=== PATIENT | female | born 1975 | race Caucasian/White ===

== ENCOUNTER 2016-08-19 21:47 | Emergency (ER) | payer OTHER ==
--- NOTE | 2016-08-19 23:19 | ED CLINICAL REPORT ---
Clinical Report - Physicians/Mid Levels [facility] [address] [place] [address] 08/19/2016 21:49 [id number] Arrived- By private vehicle. Historian- patient. HISTORY OF PRESENT ILLNESS Chief Complaint: FALL. Location of injuries- (right shoulder/ knee). The injury occurred yesterday. Occurred on a street. The patient complains of mild pain. No blow to the head, neck pain or loss of consciousness. (She was walking her laboratory fever dog, when the dog dragged her on the right arm, consequences such, patient fell to the ground in her knees, and has been having knee pain today. Patient with limited pain yesterday. Reports knee swelling and pain to the right shoulder today. Patient denies any previous knee injury. Reports icing once. Patient was seen in urgent care clinic earlier, however,to need to have swelling and thus is here. Patient denies injury to her head or neck.). REVIEW OF SYSTEMS The patient complains of pain on weight bearing. No numbness, dizziness, loss of vision, difficulty breathing or weakness. No headache or laceration. All systems otherwise negative, except as recorded above. PAST HISTORY See nurses notes. Problems: Diarrhea. Asthma. Lung Disease. Vomiting. Headache. Adrenal Disease. Environmental Allergies. Diabetes Insipidus. Thyroid Disease. LNMP - Last Normal Menstrual Period. Additional Surgeries: . Left shoulder . Pituitary tumor removal. Medications: Venlafaxine HCl Oral. Monolukast. Levothyroxine Sodium Oral. Hydrocortisone External. Desmopressin Acetate Oral. Maloxicam. Allergies: Chertussin . Dilaudid. Trovan. SOCIAL HISTORY Never smoker. No alcohol use or drug use. PHYSICAL EXAM Appearance: Alert. Eyes: EOM intact. ENT: No dental injury. CVS: Heart sounds normal. Pulses normal. Respiratory: Breath sounds normal. Chest nontender. No decreased breath sounds. Back: No tenderness. ROM normal. Extremities: Normal inspection. Right shoulder. No tenderness, laceration or puncture wound. No localization or joint effusion. Pelvis stable. Right hip. No tenderness or swelling. Right thigh. No tenderness or laceration. Right knee: mild tenderness and superficial laceration located in the medial joint line. No ecchymosis or foreign body. No limitation in ROM. Right leg. No tenderness or laceration. Neuro: Jyoti Coma Scale: 15- eyes open spontaneously (4); best verbal response- oriented x 3 (5); best motor response- obeys commands (6). Oriented X 3. No motor deficit. LABS, X-RAYS, AND EKG Rt Knee X-ray: (IMPRESSION: 1. Intact right knee. 2. Mild medial compartment osteoarthritic changes. Electronically Final signed by:Ginger Mcdowell MD 08/19/2016 11:35:15 PM). PROGRESS AND PROCEDURES Course of Care: Patient with medial joint line tenderness and mild swelling. Very ambulatory. No distress. Full range of motion of the shoulder, as well as the right knee as well as the right hip. Patient has no signs of lumbar injury. No signs of head injury. Patient to follow up outpatient as needed. 08/19/2016 23:21 BP: 123/79. HR: 93. RR: 18. O2 saturation: 99%. Temp: 97.9 F. Pain level now: 4/10. Patient is stable. Patient/family counseled. Disposition: Discharged. Condition: good. CLINICAL IMPRESSION Sprain of the right shoulder and medial collateral ligament of the right knee. INSTRUCTIONS Apply ice. You may walk and bear weight as tolerated. Do not work for two days. Prescription Medications: Ibuprofen 800 mg tablets: take 1 tablet orally every 8 hours for 5 days, as needed for pain or swelling. Dispense fifteen (15). No refill. Follow-up: Follow up with your doctor in three days as needed. Understanding of the discharge instructions verbalized by patient. (Electronically signed by Laura Morales P.A.-C 08/20/2016 0:13)
--- NOTE | 2016-08-19 23:19 | ED NURSING NOTES ---
Clinical Report - Nurses [facility] [address] [place] [address] 08/19/2016 21:49 Patient: MARKO SWANSON [facility]#: [id number] TRIAGE Triage time 22:Aug 19 2016. Acuity: LEVEL 3. Chief Complaint: FALL. SEPSIS SCREEN: Sepsis Screen: negative. Negative (no infection suspected/documented). JYOTI COMA SCORE: Jyoti Coma Scale: 15- eyes open spontaneously (4); best verbal response- oriented x 4 (5); best motor response- obeys commands (6). --22:17 Joanne Sotomayor 22:09 08/19/16. BP: 136/96. HR: 92. RR: 20. O2 saturation: 100%. Temp: 98.7 F (oral). --22:17 Joanne Sotomayor. Weight: 91.6 kg stated. Height/Length: 65 inches Per Patient. BMI: 33.6. --22:16 Joanne Sotomayor. Medications Maloxicam. --22:13 Joanne Sotomayor Desmopressin Acetate Oral. --22:15 Joanne Sotomayor Hydrocortisone External. --22:15 Joanne Sotomayor Levothyroxine Sodium Oral. --22:15 Joanne Sotomayor Monolukast. --22:16 Joanne Sotomayor Venlafaxine HCl Oral. --22:16 Joanne Sotomayor. Allergies Trovan. --22:14 Joanne Sotomayor Dilaudid. --22:14 Joanne Sotomayor Chertussin . --22:15 Joanne Sotomayor. Medication/allergy information source: the patient. --22:17 Joanne Sotomayor. History Arrived by private vehicle. Historian: patient. Accompanied by family. Primary physician (alex mooney). Location of injuries: right shoulder, right arm, right elbow, right forearm and right knee. This occurred yesterday. Occurred at a park. ( Patient reports she was walking her dog yesterday when the dog pulled her down to the ground. She reports pain in her right shoulder, right arm and right knee. Patient reports she began swelling on the right side of her body. She states she went to urgent care and they told her if she continued to have swelling she should go to ER.). 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 PAST MEDICAL HX: Immunizations: up-to-date. Last normal menstrual period- 6 months ago. SOCIAL HX: Never smoker. No alcohol use or drug use. No infectious disease exposure. ABUSE ASSESSMENT: No report of abuse. FALL RISK ASSESSMENT: Fall risk assessment completed. No fall risk identified. NUTRITIONAL RISK ASSESSMENT: The nutritional risk assessment revealed no deficiencies. FUNCTIONAL ASSESSMENT: Functional assessment: no impairments noted. LEARNING NEEDS ASSESSMENT: The learning needs assessment revealed no barriers. SKIN INTEGRITY ASSESSMENT: Skin integrity risk assessment completed. No skin integrity risk identified. --22:17 Joanne Sotomayor. PROBLEMS: Diarrhea. Asthma. Lung Disease. Vomiting. Headache. Adrenal Disease. Environmental Allergies. Diabetes Insipidus. Thyroid Disease. LNMP - Last Normal Menstrual Period. --22:16 Joanne Sotomayor. ADDITIONAL SURGERIES: . Left shoulder . Pituitary tumor removal. --22:16 Joanne Sotomayor. Interventions ID band on patient. To treatment room. --22:17 Joanne Sotomayor. PHYSICAL ASSESSMENT GENERAL / NEURO / PSYCH: Alert. Oriented X 4. Appears in no acute distress. HEENT: Pupils equal, round and reactive to light. Head non-tender. RESPIRATORY: Respirations not labored. CVS: Normal heart rate and rhythm. GI / : Abdomen soft and nontender. EXTREMITIES: Right shoulder: tenderness. Right elbow: tenderness. Right knee: tenderness. Right leg: tenderness. SKIN: Skin intact. Skin is warm and dry. --22:17 Joanne Sotomayor. NURSING PROGRESS NOTES Cold pack applied. Extremity elevated. Patient gowned. Reassurance given to the patient. Two patient identifiers checked. Call light placed in reach. Side rails up x 1. Bed placed in lowest position. Brakes of bed on. Patient ready for evaluation- chart flagged and ED physician notified. --22:17 Joanne Sootmayor 23:21 08/19/2016 Motrin PO Tablets 800 mg given. Allergies verified and confirmed 5 rights. --23:21 Joanne Sotomayor. DISPOSITION / DISCHARGE Condition at departure: stable. The goals identified in the patient's plan of care were met. FALL RISK ASSESSMENT: Fall risk assessment completed. No fall risk identified. --23:22 Joanne Sotomayor 23:21 08/19/16. BP: 123/79. HR: 93. RR: 18. O2 saturation: 99% on room air. Temp: 97.9 F (oral). Pain level now: 07/23. --23:22 Joanne Sotomayor Departure time: 23:32. --23:32 Edilberto Rogers R.N. Condition at departure: stable. No learning barriers present. Discharge instructions provided and reviewed with the patient. Reviewed medication(s) side effects, precautions, dosing and course information. Prescription(s) given to the patient. Activity restrictions (rest) reviewed. Work note given. Patient verbalized understanding. Written instructions provided in Uzbek. ( Marko verbalizes understanding of all d/c instructions including need to f/u with PCP. Reviewed RICE care for areas of injury. She has no questions and voices no concerns at this time.). The patient was discharged by the physician school bus driver/teacher assistant. She was discharged home and accompanied by spouse. She left the Emergency Department ambulatory and via private vehicle. Spouse driving. JYOTI COMA SCORE: Jyoti Coma Scale: 15- eyes open spontaneously (4); best verbal response- oriented x 4 (5); best motor response- obeys commands (6). --00:45 Edilberto Rogers R.N. Locked/Released at 08/20/2016 0:46 by Edilberto Rogers R.N.
--- NOTE | 2016-08-19 23:19 | ED ORDER SUMMARY ---
..... Patient: MARKO SWANSON OrderSheet [facility] VisitID: [id number] [address] [place] [address] 41y, F Registration Date/Time: 08/19/2016 ORDER SHEET Weight: 91.6 kg (stated) Allergies: Trovan, Dilaudid, Chertussin GENERAL ORDERS: Knee 4V Right Urgent (22:15 08/19/2016 EKoroleva P.A.-C) (Ack 22:16 AMcQuoid ER Tech1) (23:15 RFay) Ice (22:15 08/19/2016 EKoroleva P.A.-C) (Ack 22:16 AMcQuoid ER Tech1) (22:18 HSoule) MEDICATION ORDERS: Motrin PO 800 mg (NOW) (23:13 08/19/2016 EKoroleva P.A.-C) (Ack 23:16 HSoule) (23:21 HSoule) IV FLUIDS: ORDER SHEET NOTES: [Electronically signed by Laura Morales P.A.-C (00:13 08/20/2016)] [Electronically signed by Edilberto Rogers R.N. (00:46 08/20/2016)] [Electronically locked/signed by Edilberto Rogers R.N. (00:46 08/20/2016)]
--- NOTE | 2016-08-19 23:19 | ED ORDER SUMMARY ---
..... Patient: MARKO SWANSON OrderSheet [facility] VisitID: [id number] [address] [place] [address] 41y, F Registration Date/Time: 08/19/2016 ORDER SHEET Weight: 91.6 kg (stated) Allergies: Trovan, Dilaudid, Chertussin GENERAL ORDERS: Knee 4V Right Urgent (22:15 08/19/2016 EKoroleva P.A.-C) (Ack 22:16 AMcQuoid ER Tech1) (23:15 RFay) Ice (22:15 08/19/2016 EKoroleva P.A.-C) (Ack 22:16 AMcQuoid ER Tech1) (22:18 HSoule) MEDICATION ORDERS: Motrin PO 800 mg (NOW) (23:13 08/19/2016 EKoroleva P.A.-C) (Ack 23:16 HSoule) (23:21 HSoule) IV FLUIDS: ORDER SHEET NOTES: [Electronically signed by Laura Morales P.A.-C (00:13 08/20/2016)] [Electronically signed by Edilberto Rogers R.N. (00:46 08/20/2016)] [Electronically locked/signed by Edilberto Rogers R.N. (00:46 08/20/2016)]
--- NOTE | 2016-08-19 23:19 | ED NURSING NOTES ---
Clinical Report - Nurses [facility] [address] [place] [address] 08/19/2016 21:49 Patient: MARKO SWANSON [facility]#: [id number] TRIAGE Triage time 22:Aug 19 2016. Acuity: LEVEL 3. Chief Complaint: FALL. SEPSIS SCREEN: Sepsis Screen: negative. Negative (no infection suspected/documented). JYOTI COMA SCORE: Jyoti Coma Scale: 15- eyes open spontaneously (4); best verbal response- oriented x 4 (5); best motor response- obeys commands (6). --22:17 Joanne Sotomayor 22:09 08/19/16. BP: 136/96. HR: 92. RR: 20. O2 saturation: 100%. Temp: 98.7 F (oral). --22:17 Joanne Sotomayor. Weight: 91.6 kg stated. Height/Length: 65 inches Per Patient. BMI: 33.6. --22:16 Joanne Sotomayor. Medications Maloxicam. --22:13 Joanne Sotomayor Desmopressin Acetate Oral. --22:15 Joanne Sotomayor Hydrocortisone External. --22:15 Joanne Sotomayor Levothyroxine Sodium Oral. --22:15 Joanne Sotomayor Monolukast. --22:16 Joanne Sotomayor Venlafaxine HCl Oral. --22:16 Joanne Sotomayor. Allergies Trovan. --22:14 Joanne Sotomayor Dilaudid. --22:14 Joanne Sotomayor Chertussin . --22:15 Joanne Sotomayor. Medication/allergy information source: the patient. --22:17 Joanne Sotomayor. History Arrived by private vehicle. Historian: patient. Accompanied by family. Primary physician (alex mooney). Location of injuries: right shoulder, right arm, right elbow, right forearm and right knee. This occurred yesterday. Occurred at a park. ( Patient reports she was walking her dog yesterday when the dog pulled her down to the ground. She reports pain in her right shoulder, right arm and right knee. Patient reports she began swelling on the right side of her body. She states she went to urgent care and they told her if she continued to have swelling she should go to ER.). 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 PAST MEDICAL HX: Immunizations: up-to-date. Last normal menstrual period- 6 months ago. SOCIAL HX: Never smoker. No alcohol use or drug use. No infectious disease exposure. ABUSE ASSESSMENT: No report of abuse. FALL RISK ASSESSMENT: Fall risk assessment completed. No fall risk identified. NUTRITIONAL RISK ASSESSMENT: The nutritional risk assessment revealed no deficiencies. FUNCTIONAL ASSESSMENT: Functional assessment: no impairments noted. LEARNING NEEDS ASSESSMENT: The learning needs assessment revealed no barriers. SKIN INTEGRITY ASSESSMENT: Skin integrity risk assessment completed. No skin integrity risk identified. --22:17 Joanne Sotomayor. PROBLEMS: Diarrhea. Asthma. Lung Disease. Vomiting. Headache. Adrenal Disease. Environmental Allergies. Diabetes Insipidus. Thyroid Disease. LNMP - Last Normal Menstrual Period. --22:16 Joanne Sotomayor. ADDITIONAL SURGERIES: . Left shoulder . Pituitary tumor removal. --22:16 Joanne Sotomayor. Interventions ID band on patient. To treatment room. --22:17 Joanne Sotomayor. PHYSICAL ASSESSMENT GENERAL / NEURO / PSYCH: Alert. Oriented X 4. Appears in no acute distress. HEENT: Pupils equal, round and reactive to light. Head non-tender. RESPIRATORY: Respirations not labored. CVS: Normal heart rate and rhythm. GI / : Abdomen soft and nontender. EXTREMITIES: Right shoulder: tenderness. Right elbow: tenderness. Right knee: tenderness. Right leg: tenderness. SKIN: Skin intact. Skin is warm and dry. --22:17 Joanne Sotomayor. NURSING PROGRESS NOTES Cold pack applied. Extremity elevated. Patient gowned. Reassurance given to the patient. Two patient identifiers checked. Call light placed in reach. Side rails up x 1. Bed placed in lowest position. Brakes of bed on. Patient ready for evaluation- chart flagged and ED physician notified. --22:17 Joanne Sotomayor 23:21 08/19/2016 Motrin PO Tablets 800 mg given. Allergies verified and confirmed 5 rights. --23:21 Joanne Sotomayor. DISPOSITION / DISCHARGE Condition at departure: stable. The goals identified in the patient's plan of care were met. FALL RISK ASSESSMENT: Fall risk assessment completed. No fall risk identified. --23:22 Joanne Sotomayor 23:21 08/19/16. BP: 123/79. HR: 93. RR: 18. O2 saturation: 99% on room air. Temp: 97.9 F (oral). Pain level now: 07/23. --23:22 Joanne Sotomayor Departure time: 23:32. --23:32 Edilberto Rogers R.N. Condition at departure: stable. No learning barriers present. Discharge instructions provided and reviewed with the patient. Reviewed medication(s) side effects, precautions, dosing and course information. Prescription(s) given to the patient. Activity restrictions (rest) reviewed. Work note given. Patient verbalized understanding. Written instructions provided in Luxembour[place]. ( Marko verbalizes understanding of all d/c instructions including need to f/u with PCP. Reviewed RICE care for areas of injury. She has no questions and voices no concerns at this time.). The patient was discharged by the physician supply assistant. She was discharged home and accompanied by spouse. She left the Emergency Department ambulatory and via private vehicle. Spouse driving. JYOTI COMA SCORE: Jyoti Coma Scale: 15- eyes open spontaneously (4); best verbal response- oriented x 4 (5); best motor response- obeys commands (6). --00:45 Edilberto Rogers R.N. Locked/Released at 08/20/2016 0:46 by Edilberto Rogers R.N.
--- NOTE | 2016-08-19 23:35 | DIAGNOSTIC IMAGING REPORT ---
PROCEDURE: XR KNEE 4 VIEWS - RIGHT INDICATION: TRAUMA/INJURY TECHNIQUE: Four views of the right knee. COMPARISON: None. FINDINGS: Normal mineralization. No fractures. Mild medial compartment joint space loss and marginal spurring. Normal osseous alignment. No joint effusion. No suspicious soft-tissue calcification or radiodense foreign bodies. IMPRESSION: 1. Intact right knee. 2. Mild medial compartment osteoarthritic changes.
--- NOTE | 2016-08-20 00:46 | ED MAR SUMMARY ---
..... Medication Administration Record [place] [address] [place] [address] Patient: MARKO SWANSON Visit ID: [id number] 41y, F Weight: 91.6 kg Height/Length: 65 in BMI: 33.6 ALLERGIES: Chertussin , Lauraid, Trovan Given 23:21 08/19/2016 Joanne Sotomayor, Medication Administered: MOTRIN [PO], Dose: 800 mg Tablets PO. Medication Ordered: Motrin PO 800 mg (NOW).
--- NOTE | 2016-08-20 00:46 | ED DISCHARGE INSTRUCTIONS ---
Patient: MARKO SWANSON General Instructions [facility] VisitID: [id number] [address] [place] [address] 41y, F Registration Date/Time: 08/19/2016 Sprain of the right shoulder and medial collateral ligament of the right knee. INSTRUCTIONS Apply ice. You may walk and bear weight as tolerated. Do not work for two days. Prescription Medications: Ibuprofen 800 mg tablets: take 1 tablet orally every 8 hours for 5 days, as needed for pain or swelling. Dispense fifteen (15). No refill. Follow-up: Follow up with your doctor in three days as needed. Understanding of the discharge instructions verbalized by patient. ADDITIONAL INFORMATION Shoulder Sprain A sprain is a stretching or tearing of the ligaments that hold a joint together. A sprain may take up to six weeks to fully heal, depending on how severe it is. Moderate to severe shoulder sprains are treated with a sling or shoulder immobilizer. Minor sprains can be treated without any special support. Home care The following guidelines will help you care for your injury at home: If a sling was provided, leave it in place for the time advised by your doctor. If you are unsure how long to wear it, ask for advice. If the sling becomes loose, adjust it so that your forearm is level with the ground and the shoulder feels well supported. Apply an ice pack (ice cubes in a plastic bag, wrapped in a thin towel) over the injured area for 20 minutes every 12 hours the first day. Continue with ice packs 34 times a day for the next two days, then as needed for the relief of pain and swelling. You may use acetaminophen or ibuprofen to control pain, unless another pain medicine was prescribed.If you have chronic liver or kidney disease or ever had a stomach ulcer or GI bleeding, talk with your doctor before using these medicines. Shoulder joints become stiff if left in a sling for too long. Range of motion exercises should usually be started within the first ten days after injury. Consult your doctor on what type of exercises to do and how soon to start. Follow-up care Follow up with your doctor as directed. Any X-rays you had today dont show any broken bones, breaks, or fractures. Sometimes fractures dont show up on the first X-ray. Bruises and sprains can sometimes hurt as much as a fracture. These injuries can take time to heal completely. If your symptoms dont improve or they get worse, talk with your doctor. You may need a repeat X-ray. When to seek medical care Get prompt medical attention if any of the following occur: Increasing shoulder pain or arm swelling Fingers become cold, blue, numb, or tingly Large amount of bruising of the shoulder or upper arm Sprain, Knee A sprain is an injury to the ligaments or capsule that holds a joint together. There are no broken bones. Most sprains take three to six weeks to heal. If the ligament is completely torn (severe sprain), it can take months to recover from. Most knee sprains are treated with a splint, knee immobilizer or elastic wrap for support. Severe sprains may require surgery. Home care The following guidelines will help you care for your injury at home: Stay off the injured leg as much as possible until you can walk on it without pain. If you have a lot of pain with walking, crutches or a walker may be prescribed. (These can be rented or purchased at many pharmacies and surgical or orthopedic supply stores). Follow your doctor's advice regarding when to begin bearing weight on that leg. Keep your leg elevated to reduce pain and swelling. When sleeping, place a pillow under the injured leg. When sitting, support the injured leg so it is level with your waist. This is very important during the first 48 hours. Apply an ice pack (ice cubes in a plastic bag, wrapped in a towel) over the injured area for 20 minutes every 12 hours the first day. You can place the ice pack directly over the splint. If a Velcro knee immobilizer was applied, you can open this to apply the ice pack directly to the knee. Continue with ice packs 34 times a day for the next two days, then as needed for the relief of pain and swelling. You may use acetaminophen or ibuprofen to control pain, unless another pain medicine was prescribed. If you have chronic liver or kidney disease or ever had a stomach ulcer or GI bleeding, talk with your doctor before using these medicines. If you were given a splint, keep it completely dry at all times. Bathe with your splint out of the water, protected with a large plastic bag, rubber-banded at the top end. If a fiberglass splint gets wet, you can dry it with a hair-dryer. If you have a Velcro knee immobilizer, you can remove this to bathe, unless told otherwise. Follow-up care Follow up with your doctor as advised. Any X-rays you had today dont show any broken bones, breaks, or fractures. Sometimes fractures dont show up on the first X-ray. Bruises and sprains can sometimes hurt as much as a fracture. These injuries can take time to heal completely. If your symptoms dont improve or they get worse, talk with your doctor. You may need a repeat X-ray. When to seek medical care Get prompt medical attention if any of the following occur: The plaster cast or splint becomes wet or soft The fiberglass cast or splint remains wet for more than 24 hours Pain or swelling increases Toes become cold, blue, numb or tingly Ibuprofen Oral tablet What is this medicine? IBUPROFEN (eye BYOO proe fen) is a non-steroidal anti-inflammatory drug (NSAID). It is used for dental pain, fever, headaches or migraines, osteoarthritis, rheumatoid arthritis, or painful monthly periods. It can also relieve minor aches and pains caused by a cold, flu, or sore throat. How should I use this medicine? Take this medicine by mouth with a glass of water. Follow the directions on the prescription label. Take this medicine with food if your stomach gets upset. Try to not lie down for at least 10 minutes after you take the medicine. Take your medicine at regular intervals. Do not take your medicine more often than directed. A special MedGuide will be given to you by the pharmacist with each prescription and refill. Be sure to read this information carefully each time. Talk to your zoology professor regarding the use of this medicine in children. Special care may be needed. What side effects may I notice from receiving this medicine? Side effects that you should report to your doctor or health healthcare science specialist as soon as possible: allergic reactions like skin rash, itching or hives, swelling of the face, lips, or tongue black or bloody stools, blood in the urine or in vomit breathing problems changes in vision chest pain general ill feeling or flu-like symptoms nausea or vomiting redness, blistering, peeling or loosening of the skin, including inside the mouth slurred speech or weakness on one side of the body stomach pain unexplained weight gain or swelling unusually weak or tired yellowing of eyes or skin Side effects that usually do not require medical attention (report to your doctor or health healthcare science specialist if they continue or are bothersome): constipation or diarrhea dizziness gas or heartburn stomach upset What may interact with this medicine? Do not take this medicine with any of the following medications: cidofovir ketorolac methotrexate pemetrexed This medicine may also interact with the following medications: alcohol aspirin diuretics lithium other drugs for inflammation like prednisone warfarin What if I miss a dose? If you miss a dose, take it as soon as you can. If it is almost time for your next dose, take only that dose. Do not take double or extra doses. Where should I keep my medicine? Keep out of the reach of children. Store at room temperature between 15 and 30 degrees C (59 and 86 degrees F). Keep container tightly closed. Throw away any unused medicine after the expiration date. What should I tell my health care provider before I take this medicine? They need to know if you have any of these conditions: asthma cigarette smoker drink more than 3 alcohol containing drinks a day heart disease or circulation problems such as heart failure or leg edema (fluid retention) high blood pressure kidney disease liver disease stomach bleeding or ulcers an unusual or allergic reaction to ibuprofen, aspirin, other NSAIDS, other medicines, foods, dyes, or preservatives or trying to get breast-feeding What should I watch for while using this medicine? Tell your doctor or healthcare professional if your symptoms do not start to get better or if they get worse. This medicine does not prevent heart attack or stroke. In fact, this medicine may increase the chance of a heart attack or stroke. The chance may increase with longer use of this medicine and in people who have heart disease. If you take aspirin to prevent heart attack or stroke, talk with your doctor or health healthcare science specialist. Do not take other medicines that contain aspirin, ibuprofen, or naproxen with this medicine. Side effects such as stomach upset, nausea, or ulcers may be more likely to occur. Many medicines available without a prescription should not be taken with this medicine. This medicine can cause ulcers and bleeding in the stomach and intestines at any time during treatment. Ulcers and bleeding can happen without warning symptoms and can cause . To reduce your risk, do not smoke cigarettes or drink alcohol while you are taking this medicine. You may get drowsy or dizzy. Do not drive, use machinery, or do anything that needs mental alertness until you know how this medicine affects you. Do not stand or sit up quickly, especially if you are an older patient. This reduces the risk of dizzy or fainting spells. This medicine can cause you to bleed more easily. Try to avoid damage to your teeth and gums when you brush or floss your teeth. You have been given the following additional information: Shoulder Sprain Knee Sprain Ibuprofen Oral tablet You may walk and bear weight as tolerated. Do not work for two days. (Electronically signed by Laura Morales P.A.-C 08/20/2016 0:13)
--- NOTE | 2016-08-20 00:46 | ED MAR SUMMARY ---
..... Medication Administration Record [facility] [address] [place] [address] Patient: MARKO SWANSON Visit ID: [id number] 41y, F Weight: 91.6 kg Height/Length: 65 in BMI: 33.6 ALLERGIES: Chertussin , Lauraid, Trovan Given 23:21 08/19/2016 Joanne Sotomayor, Medication Administered: MOTRIN [PO], Dose: 800 mg Tablets PO. Medication Ordered: Motrin PO 800 mg (NOW).
--- NOTE | 2016-08-20 00:47 | ED MED RECONCILIATION SUMMARY ---
Patient: MARKO SWANSON Medication Reconciliation Report [facility] VisitID: [id number] [address] [place] [address] 41y, F Registration Date/Time: 08/19/2016 Weight: 91.6 kg Height/Length: 65 in. BMI: 33.6 ALLERGIES: Chertussin , Dilaudid, Trovan The patient's Home Medications are listed below: THE FOLLOWING MEDICATIONS NEED TO BE RECONCILED: Desmopressin Acetate Oral Hydrocortisone External Levothyroxine Sodium Oral Maloxicam Monolukast Venlafaxine HCl Oral The source(s) of the original Home Medication information: patient The following Medications were given to the patient in the Emergency Department: Motrin [PO] PO 800 mg, administered: 08/19/2016 11:21:00 PM The following Medications were prescribed to the patient: Ibuprofen 800 mg tablets: take 1 tablet orally every 8 hours for 5 days, as needed for pain or swelling. Dispense fifteen (15). No refill. -- Laura Morales, PLizbethC
--- NOTE | 2016-08-20 00:47 | ED MED RECONCILIATION SUMMARY ---
Patient: MARKO SWANSON Medication Reconciliation Report [facility] VisitID: [id number] [address] [place] [address] 41y, F Registration Date/Time: 08/19/2016 Weight: 91.6 kg Height/Length: 65 in. BMI: 33.6 ALLERGIES: Chertussin , Dilaudid, Trovan The patient's Home Medications are listed below: THE FOLLOWING MEDICATIONS NEED TO BE RECONCILED: Desmopressin Acetate Oral Hydrocortisone External Levothyroxine Sodium Oral Maloxicam Monolukast Venlafaxine HCl Oral The source(s) of the original Home Medication information: patient The following Medications were given to the patient in the Emergency Department: Motrin [PO] PO 800 mg, administered: 08/19/2016 11:21:00 PM The following Medications were prescribed to the patient: Ibuprofen 800 mg tablets: take 1 tablet orally every 8 hours for 5 days, as needed for pain or swelling. Dispense fifteen (15). No refill. -- Laura Morales, PLizbethC
== END 2016-08-19 23:31 | disposition home or self-care (01) ==
LOC: ED SRH 21:47
DX: S43.401A Unspecified sprain of right shoulder joint, initial encounter (principal); S83.411A Sprain of medial collateral ligament of right knee, initial encounter; W19.XXXA Unspecified fall, initial encounter; Y93.K1 Activity, walking an animal; Y92.830 Public park as the place of occurrence of the external cause; Y99.8 Other external cause status; E11.9 Type 2 diabetes mellitus without complications; Z79.899 Other long term (current) drug therapy; Z88.5 Allergy status to narcotic agent; Z88.8 Allergy status to other drugs, medicaments and biological substances